=== PATIENT | female | born 1995 | race African-American/Black ===

== ENCOUNTER 2018-08-11 06:02 | Inpatient (IN) ==
[2018-08-11] MEDS ORDERED: LACTATED RINGERS 500 ML IV PRN (06:12)
[2018-08-11] MEDS ORDERED: ONDANSETRON 4 MG/2 ML VIAL IV PRN ×2 (06:12→20:37)
[2018-08-11] MEDS ORDERED: MEPERIDINE 50 MG/1 ML VIAL IV PRN (06:12)
[2018-08-11] MEDS ORDERED: LACTATED RINGERS 1,000 ML IV SCH (06:30)
[2018-08-11] MEDS ORDERED: OXYTOCIN/LR 20 UNIT/1,000 ML BAG IV SCH (06:30)
[2018-08-11 06:41] LABS: Basophils % 0.2 % (0.0-0.8); Eosinophils % 0.5 % (0.00-10.9); Hemoglobin 10.1 GM/DL (12.0-16.0); Immature Granulocytes % 0.7 %; Immature Granulocytes Absolute 0.04 #; Lymphocytes # 1.6 10*3/uL (1.4-4.0); Lymphocytes % 28.3 % (21.3-54.2); Mean Corpuscular HGB Conc 29.7 GM/DL (32-36); Mean Corpuscular Volume 89.9 FL (87-102); Mean Platelet Volume 10.6 FL (9.6-12.0); Monocytes % 11.8 % (1.7-12.7); Neutrophils % 58.5 % (38.7-73.9); Platelet Count 212 T/CUMM (130-400); Red Blood Count 3.78 MC/CUMM (3.8-5.5); Red Cell Distribution Width 13.2 % (9.3-17.3); White Blood Count 5.8 T/CUMM (4-12)
[2018-08-11 06:47] LABS: INR 0.9; PT Patient Result 9.5 SECS; Partial Thromboplastin Time 27.9 SECS (0-40)
[2018-08-11 06:51] LABS: Alanine Aminotransferase 33 U/L (13-56); Albumin 2.8 G/DL (3.4-5.0); Alkaline Phosphatase 97 U/L (45-117); Aspartate Amino Transferase 18 U/L (0-37); Bilirubin,Total < 0.39 MG/DL (0.2-1.0); Blood Urea Nitrogen 7 MG/DL (7-18); Calcium 9.1 MG/DL (8.5-10.1); Glucose 77 MG/DL (74-106); Total Protein 7.2 G/DL (6.4-8.3); Uric Acid 3.2 MG/DL (2.6-6.0)
[2018-08-11] MEDS ORDERED: AMPICILLIN 2,000 MG VIAL IM ONE (07:12)
[2018-08-11] MEDS ORDERED: SODIUM CHLORIDE 0.9% 100 ML IV ONE (07:28)
[2018-08-11] MEDS ORDERED: AMPICILLIN INJ 2,000 MG in SODIUM CHLORIDE 0.9% 100 ML IV ONE (07:30)
[2018-08-11] MEDS: AMPICILLIN INJ 1,000 MG in SODIUM CHLORIDE 0.9% 100 ML IV SCH ×3 (11:30→19:24)
[2018-08-11] MEDS: BUTORPHANOL 1 MG/ML VIAL IV PRN ×2 (11:47→16:59)
[2018-08-11 12:06] LABS: Hepatitis B Surface Ag Quant < 0.10 Index; Hepatitis B Surface Ag Result Negative (Negative)
[2018-08-11] MEDS: MEPERIDINE 25 MG/1 ML VIAL IV PRN ×2 (15:03→18:29)
[2018-08-11] MEDS ORDERED: miSOPROStol 200 MCG TABLET ONE (17:08)
[2018-08-11] MEDS ORDERED: LIDOCAINE 1% 50 ML VIAL ONE (17:08)
[2018-08-11] MEDS ORDERED: METHYLERGONOVINE 0.2 MG/1 ML AMP ONE (20:14)
[2018-08-11] MEDS ORDERED: BENZOCAINE 20%/MENTHOL 0.5% SPRAY 56 GM CAN TOP PRN (20:37)
[2018-08-11] MEDS ORDERED: WITCH HAZEL PADS 100/JAR TOP PRN (20:37)
[2018-08-11] MEDS ORDERED: RHO(D) IMMUNE GLOBULIN 300 MCG SYRINGE IM ONE (20:37)
[2018-08-11] MEDS ORDERED: ACETAMINOPHEN 325 MG TABLET PO PRN (20:37)
[2018-08-11] MEDS ORDERED: BISACODYL 10 MG SUPP RECTAL PRN (20:37)
[2018-08-11] MEDS ORDERED: MEASLES/MUMPS/RUBELLA VACCINE 0.5 ML VIAL SUBCUT ONE (20:37)
[2018-08-11] MEDS ORDERED: HYDROCORTISONE 2.5% RECTAL CREAM 30 GM TUBE TOP PRN (20:37)
[2018-08-11] MEDS ORDERED: DIPH/TET/ACEL PERT BOOSTER VACCINE 0.5 ML VIAL IM ONE (20:37)
[2018-08-11] MEDS ORDERED: OXYTOCIN/LR 20 UNIT/1,000 ML BAG IV ONE (20:37)
[2018-08-11] MEDS ORDERED: LANOLIN 50% CREAM 0.3 OZ TUBE TOP PRN (20:37)
[2018-08-12] MEDS: DOCUSATE SODIUM 100 MG CAPSULE PO SCH ×3 (01:23→21:17)
[2018-08-12] MEDS: oxyCODONE/ACETAMINOPHEN 5-325 MG TABLET PO PRN ×3 (01:29→21:17)
[2018-08-12] MEDS: IBUPROFEN 800 MG TABLET PO PRN ×4 (05:16→23:41)
[2018-08-12 05:35] LABS: Basophils % 0.1 % (0.0-0.8); Eosinophils % 0.1 % (0.00-10.9); Hematocrit 24.9 VOL% (35.7-47.0); Hemoglobin 7.6 GM/DL (12.0-16.0); Immature Granulocytes % 0.4 %; Immature Granulocytes Absolute 0.05 #; Lymphocytes # 1.2 10*3/uL (1.4-4.0); Mean Corpuscular HGB Conc 30.5 GM/DL (32-36); Mean Corpuscular Volume 88.3 FL (87-102); Mean Platelet Volume 11.3 FL (9.6-12.0); Monocytes % 8.9 % (1.7-12.7); Neutrophils % 79.5 % (38.7-73.9); Platelet Count 186 T/CUMM (130-400); Red Blood Count 2.82 MC/CUMM (3.8-5.5); Red Cell Distribution Width 13.1 % (9.3-17.3); White Blood Count 11.2 T/CUMM (4-12)
[2018-08-12] MEDS ORDERED: SODIUM CHLORIDE 0.9% 1,000 ML IV PRN (09:07)
[2018-08-12] MEDS: FERROUS SULFATE 325 MG TABLET PO SCH ×3 (09:49→21:17)
[2018-08-13] MEDS: oxyCODONE/ACETAMINOPHEN 5-325 MG TABLET PO PRN ×2 (04:02→10:00)
[2018-08-13 04:56] LABS: Hematocrit 25.4 VOL% (35.7-47.0)
[2018-08-13] MEDS: IBUPROFEN 800 MG TABLET PO PRN (08:00)
[2018-08-13 08:11] VITALS: BP 118/64
[2018-08-13] MEDS: FERROUS SULFATE 325 MG TABLET PO SCH (08:36)
[2018-08-13] MEDS: DOCUSATE SODIUM 100 MG CAPSULE PO SCH (08:36)
== END 2018-08-13 12:40 | disposition home or self-care (01) | DRG 560 ==
LOC: N.LDOUT 06:02 → N.LD 06:05 → N.OB 08-12 01:00
PROVIDERS: ADMIT Obstetrics & Gynecology; ATTEND Obstetrics & Gynecology

== ENCOUNTER 2019-09-15 01:46 | Inpatient (IN) ==
[2019-09-15] MEDS ORDERED: MEPERIDINE 50 MG/1 ML VIAL IV PRN (02:20)
[2019-09-15] MEDS ORDERED: LACTATED RINGERS 500 ML IV PRN (02:20)
[2019-09-15] MEDS ORDERED: ONDANSETRON 4 MG/2 ML VIAL IV PRN ×2 (02:20→03:47)
[2019-09-15] MEDS ORDERED: BUTORPHANOL 2 MG/ML VIAL IV PRN (02:20)
[2019-09-15] MEDS ORDERED: LACTATED RINGERS 1,000 ML IV SCH (02:30)
[2019-09-15] MEDS ORDERED: TRANEXAMIC ACID 1,000 MG/10 ML VIAL ONE (02:32)
[2019-09-15] MEDS ORDERED: CARBOPROST TROMETHAMINE 250 MCG/ML AMP IM ONE (02:32)
[2019-09-15] MEDS ORDERED: OXYTOCIN/LR 20 UNIT/1,000 ML BAG IV ONE ×2 (02:32→03:47)
[2019-09-15] MEDS ORDERED: METHYLERGONOVINE 0.2 MG/1 ML AMP ONE (02:32)
[2019-09-15] MEDS ORDERED: miSOPROStoL 200 MCG TABLET ONE (02:32)
[2019-09-15] MEDS ORDERED: OXYTOCIN/LR 30 UNIT/1,000 ML BAG IV ONE (02:36)
[2019-09-15 02:52] LABS: Basophils % 0.2 % (0.0-0.8); Eosinophils % 0.3 % (0.00-10.9); Hematocrit 34.7 VOL% (35.7-47.0); Hemoglobin 10.5 GM/DL (12.0-16.0); Immature Granulocytes % 0.6 %; Immature Granulocytes Absolute 0.04 #; Lymphocytes # 1.8 10*3/uL (1.4-4.0); Lymphocytes % 28.6 % (21.3-54.2); Mean Corpuscular HGB Conc 30.3 GM/DL (32-36); Mean Corpuscular Volume 91.1 FL (87-102); Mean Platelet Volume 11.9 FL (9.6-12.0); Monocytes % 9.7 % (1.7-12.7); Neutrophils % 60.6 % (38.7-73.9); Platelet Count 160 T/CUMM (130-400); Red Blood Count 3.81 MC/CUMM (3.8-5.5); Red Cell Distribution Width 13.3 % (9.3-17.3); White Blood Count 6.4 T/CUMM (4-12)
[2019-09-15] MEDS ORDERED: OXYTOCIN 20 UNIT in SODIUM CHLORIDE 0.9% 1,000 ML IV SCH (03:00)
[2019-09-15] MEDS ORDERED: AMPICILLIN INJ 2,000 MG in SODIUM CHLORIDE 0.9% 100 ML IV ONE (03:08)
[2019-09-15] MEDS ORDERED: LIDOCAINE 1% 50 ML VIAL ONE (03:11)
[2019-09-15] MEDS ORDERED: oxyCODONE/ACETAMINOPHEN 5-325 MG TABLET PO PRN ×2 (03:47)
[2019-09-15] MEDS ORDERED: ACETAMINOPHEN 325 MG TABLET PO PRN (03:47)
[2019-09-15] MEDS ORDERED: HYDROCORTISONE 2.5% RECTAL CREAM 30 GM TUBE TOP PRN (03:47)
[2019-09-15] MEDS ORDERED: RHO(D) IMMUNE GLOBULIN 300 MCG SYRINGE IM ONE (03:47)
[2019-09-15] MEDS ORDERED: BENZOCAINE 20%/MENTHOL 0.5% SPRAY 56 GM CAN TOP PRN (03:47)
[2019-09-15] MEDS ORDERED: LANOLIN 50% CREAM 0.3 OZ TUBE TOP PRN (03:47)
[2019-09-15] MEDS ORDERED: WITCH HAZEL PADS 100/JAR TOP PRN (03:47)
[2019-09-15] MEDS ORDERED: DIPH/TET/ACEL PERT BOOSTER VACCINE 0.5 ML VIAL IM ONE (03:47)
[2019-09-15] MEDS ORDERED: BISACODYL 10 MG SUPP RECTAL PRN (03:47)
[2019-09-15] MEDS ORDERED: MEASLES/MUMPS/RUBELLA VACCINE 0.5 ML VIAL SUBCUT ONE (03:47)
[2019-09-15 04:36] LABS: Cord Venous Blood HCO3 22.3 MMOL/L; Cord Venous Blood PCO2 39.5 MMHG; Cord Venous Blood PO2 39.8 MMHG
[2019-09-15 04:38] LABS: Cord Arterial Blood HCO3 20.8 MMOL/L
[2019-09-15] MEDS: IBUPROFEN 800 MG TABLET PO PRN ×2 (05:56→20:22)
[2019-09-15] MEDS: DOCUSATE SODIUM 100 MG CAPSULE PO SCH ×2 (09:15→20:22)
[2019-09-15] MEDS: oxyCODONE/ACETAMINOPHEN 5-325 MG TABLET PO PRN ×2 (10:00→20:21)
[2019-09-16 03:14] LABS: Basophils % 0.1 % (0.0-0.8); Eosinophils # 0.1 10*3/uL (0.0-0.87); Eosinophils % 0.7 % (0.00-10.9); Hematocrit 31.3 VOL% (35.7-47.0); Hemoglobin 9.5 GM/DL (12.0-16.0); Immature Granulocytes % 0.7 %; Immature Granulocytes Absolute 0.05 #; Lymphocytes # 1.9 10*3/uL (1.4-4.0); Lymphocytes % 26.1 % (21.3-54.2); Mean Corpuscular HGB Conc 30.4 GM/DL (32-36); Mean Corpuscular Volume 89.7 FL (87-102); Mean Platelet Volume 11.3 FL (9.6-12.0); Monocytes % 9.2 % (1.7-12.7); Neutrophils % 63.2 % (38.7-73.9); Platelet Count 180 T/CUMM (130-400); Red Blood Count 3.49 MC/CUMM (3.8-5.5); Red Cell Distribution Width 13.2 % (9.3-17.3); White Blood Count 7.2 T/CUMM (4-12)
[2019-09-16] MEDS: IBUPROFEN 800 MG TABLET PO PRN ×3 (03:37→21:04)
[2019-09-16] MEDS: oxyCODONE/ACETAMINOPHEN 5-325 MG TABLET PO PRN ×3 (03:38→21:04)
[2019-09-16] MEDS: DOCUSATE SODIUM 100 MG CAPSULE PO SCH ×2 (08:05→21:04)
[2019-09-17] MEDS: IBUPROFEN 800 MG TABLET PO PRN (08:39)
[2019-09-17] MEDS: DOCUSATE SODIUM 100 MG CAPSULE PO SCH (08:39)
[2019-09-17] MEDS: oxyCODONE/ACETAMINOPHEN 5-325 MG TABLET PO PRN (08:40)
[2019-09-17 09:30] VITALS: BP 131/64
== END 2019-09-17 14:00 | disposition home or self-care (01) | DRG 560 ==
LOC: N.LDOUT 01:46 → N.LD 01:47 → N.OB 07:37
PROVIDERS: ADMIT Obstetrics & Gynecology; ATTEND Obstetrics & Gynecology